=== PATIENT | male | born 1980 | race Caucasian/White ===

== ENCOUNTER → 2017-09-16 | Day surgery (SDC) | payer OTHER ==
[~2017-09-16] VITALS: Ht 200.7 cm; Wt 104.3 kg
[~2017-09-16] MED LIST: PERCOCET 5-3251 EACH PO; ZUBSOLV 1.4-0.1 EACH SL
--- NOTE | 2017-09-16 10:26 | Operative Report ---
Operative/Inv Procedure Report Surgery Date: 09/16/17 Name of Procedure: Laparoscopic bilateral inguinal hernia repair Pre-Operative Diagnosis: Left inguinal hernia Post-Operative Diagnosis: Bilateral inguinal hernia Estimated Blood Loss: scant Surgeon/Computer Operations Analyst: Jona HOWARD,Lincoln Carlton/Kelvin BRISENO Anesthesia: general endotracheal tube Implants: Parietex mesh Operative Indication: 37-year-old male with new onset left inguinal hernia. He presents for repair. In the past 2 weeks his noticed increasing pain in his right groin and requests contralateral exploration Operative/Procedure Note Note: After consent patient is brought to the operating room laid supine. General anesthesia was obtained and the abdomen was prepped and draped. Skin was anesthetized with local anesthesia and a transverse infraumbilical incision made sharply. We identified the rectus fascia and incised transversely. Stay sutures were placed. Rectus muscle was retracted laterally and a dissecting balloon placed posterior to it. It was inflated under direct vision the camera and replaced with a blunt Calles port. Gas was instilled. 2, 5 mm ports were placed in the infraumbilical midline after local anesthesia was instilled and under direct vision and camera. Began our dissection at the pubis and delineated the symphysis. Jabier's ligament was identified and cleared on the left side. There is no direct hernia. Then dissected laterally and developed the iliopubic tract. There was a large indirect hernia sac and associated cord lipoma. The cord structures were circumferentially dissected. Sac was dissected free from the cord structures reflected medially. Once the dissection was completed a left-sided piece of Parietex mesh was placed in the cavity. It was placed around the cord structures re-create the internal ring and cover the femoral and direct spaces as well. Attention was then turned to the contralateral side. Again there was no direct hernia. There was a fat- containing indirect hernia. Dissection was carried forth similarly. Mesh was placed in the right side in a similar fashion. Once I was happy with both mesh positions, Gas was allowed to escape on maintaining proper orientation of the mesh. The fascia was closed with 0 Vicryl suture. Skin incisions closed with 4 -0 Vicryl. Steri-Strips and sterile dressing applied. Sponge and needle counts are correct. Findings: Indirect left greater than right CC: Ayanna HOWARD,Jairo See
== END ==
LOC: STS 03:24
DX: K40.20 Bilateral inguinal hernia, without obstruction or gangrene, not specified as recurrent (principal)
CPT/HCPCS: C1781; C9399; J0131; J0690; J2250